=== PATIENT | male | born 1940 | race Caucasian/White ===

== ENCOUNTER 2020-06-29 15:31 | Inpatient (IN) ==
[2020-06-29] MEDS ORDERED: Ondansetron 4 MG/2 ML VIAL IVP PRN (19:36)
[2020-06-29] MEDS ORDERED: Acetaminophen 325 MG TABLET PO PRN (19:36)
[2020-06-29 20:18] LABS: Hematocrit 42.7 % (37.5-50.1); Hemoglobin 12.8 g/dL (12.9-16.9); Mean Corpuscular Hemoglobin 28.1 pg (28.0-33.3); Mean Corpuscular Volume 93.6 fL (83.0-100.0); Mean Platelet Volume 10.2 fL (9.4-12.4); Platelet Count 300 K/mcL (140-400); Red Blood Count 4.56 M/mcL (4.19-5.50); White Blood Count 7.9 K/mcL (4.3-11.1)
[2020-06-29] MEDS ORDERED: Furosemide 40 MG/4 ML VIAL IVP ONE (20:21)
[2020-06-29 20:38] LABS: Calcium 9.3 mg/dL (8.6-10.3); Potassium 5.4 mEq/L (3.5-5.1)
[2020-06-29 20:41] LABS: INR 5.3
[2020-06-30] MEDS ORDERED: Furosemide 40 MG/4 ML VIAL IVP SCH ×2 (08:00→13:30)
[2020-06-30 08:35] LABS: Albumin 3.1 g/dL (3.5-5.7); Albumin/Globulin Ratio 0.9 (1.1-2.2); Bilirubin,Direct 0.1 mg/dL (0.0-0.2); Bilirubin,Indirect 0.4 mg/dL (0.0-1.0); Bilirubin,Total 0.5 mg/dL (0.3-1.0); Globulin 3.3 g/dL (2.4-3.5); Magnesium 2.4 mg/dL (1.6-2.6); Phosphorous 4.5 mg/dL (2.7-4.5); Total Protein 6.4 g/dL (6.4-8.9)
[2020-06-30 08:38] LABS: Troponin I 0.04 ng/mL (< 0.04)
[2020-06-30 08:52] LABS: Hematocrit 43.3 % (37.5-50.1); Hemoglobin 12.9 g/dL (12.9-16.9); Mean Corpuscular HGB Conc 29.8 g/dL (31.6-35.5); Mean Corpuscular Hemoglobin 27.7 pg (28.0-33.3); Mean Corpuscular Volume 93.1 fL (83.0-100.0); Mean Platelet Volume 10.3 fL (9.4-12.4); Platelet Count 297 K/mcL (140-400); Red Blood Count 4.65 M/mcL (4.19-5.50); Red Cell Distribution Width 17.1 % (11.5-14.5); White Blood Count 9.6 K/mcL (4.3-11.1)
[2020-06-30 08:59] LABS: INR 4.8; Prothrombin Time 53.1 Seconds (9.4-12.1)
[2020-06-30 09:36] LABS: Calcium 9.4 mg/dL (8.6-10.3); Magnesium 2.3 mg/dL (1.6-2.6); Potassium 5.3 mEq/L (3.5-5.1); Troponin I 0.04 ng/mL (< 0.04)
[2020-06-30 13:48] LABS: ABG Base Excess -4 mEq/L (-2 to 3); ABG HCO3 24 mEq/L (21-27); ABG Oxygen Saturation 91 % (95-98); ABG PCO2 54 mmHg (35-45); ABG PH 7.26 pH Units (7.32-7.45); ABG PO2 70 mmHg (85-104); ABG TCO2 26 mEq/L (20-26)
[2020-06-30] MEDS ORDERED: Perflutren Lipid Microsphere 1.3 ML in 0.9 % Sodium Chloride 8.7 ML IVP PRN (15:29)
[2020-06-30] MEDS ORDERED: Dextrose Gel 15 GM/37.5 ML TUBE PO PRN ×2 (15:48)
[2020-06-30] MEDS ORDERED: D5% in Water 1,000 ML IVC PRN (15:48)
[2020-06-30] MEDS ORDERED: *HR* Dextrose 50 % in Water (Vial) 50 ML VIAL IVP PRN (15:48)
[2020-06-30] MEDS: Insulin LISPRO 300 UNITS/3 ML VIAL SQ SCH (16:21)
[2020-06-30] MEDS: Azithromycin 500 MG in D5% in Water 250 ML IVPB SCH (16:31)
[2020-06-30] MEDS: cefTRIAXone 1,000 MG in Water for inj. (sterile) 20 ML IVP SCH (16:32)
[2020-06-30 16:48] LABS: Estimated Average Glucose 134 mg/dl
[2020-06-30] MEDS ORDERED: Warfarin perPT PO PRN ×2 (18:00)
[2020-06-30] MEDS: Furosemide 40 MG/4 ML VIAL IVP SCH (20:19)
[2020-06-30 21:14] LABS: Bilirubin,Urine Negative (Negative); Blood,Urine Negative (Negative); Clarity,Urine Clear (Clear); Color,Urine Light-Yellow (Yellow); Glucose,Urine (UA) Normal (Normal); Ketones,Urine Negative (Negative); Leukocyte Esterase,Urine Negative (Negative); Nitrite,Urine Negative (Negative); Protein,Urine Negative (Neg-Trace); Specific Gravity,Urine 1.009 (1.010-1.025); Urobilinogen,Urine Normal (Normal)
[2020-07-01 06:20] LABS: Basophils % 0.3 %; Eosinophils # 0.1 K/mcL (0.0-0.6); Eosinophils % 1.1 %; Hematocrit 36.2 % (37.5-50.1); Hemoglobin 11.3 g/dL (12.9-16.9); Immature Granulocytes % 0.3 % (0-4); Lymphocytes # 0.6 K/mcL (0.6-4.6); Lymphocytes % 5.8 %; Mean Corpuscular HGB Conc 31.2 g/dL (31.6-35.5); Mean Corpuscular Hemoglobin 28.6 pg (28.0-33.3); Mean Corpuscular Volume 91.6 fL (83.0-100.0); Mean Platelet Volume 10.3 fL (9.4-12.4); Monocytes # 1.1 K/mcL (0.0-1.3); Monocytes % 10.6 %; Neutrophils # 8.1 K/mcL (1.6-8.9); Platelet Count 243 K/mcL (140-400); Red Blood Count 3.95 M/mcL (4.19-5.50); Red Cell Distribution Width 16.6 % (11.5-14.5); Segmented Neutrophils % 81.9 %; White Blood Count 9.9 K/mcL (4.3-11.1)
[2020-07-01 06:39] LABS: Magnesium 2.1 mg/dL (1.6-2.6); Phosphorous 4.6 mg/dL (2.7-4.5); Uric Acid 6.1 mg/dL (2.3-7.6)
[2020-07-01 06:40] LABS: INR 3.5; Prothrombin Time 38.8 Seconds (9.4-12.1)
[2020-07-01] MEDS: Furosemide 40 MG/4 ML VIAL IVP SCH ×2 (07:48→16:20)
[2020-07-01] MEDS: Insulin LISPRO 300 UNITS/3 ML VIAL SQ SCH ×3 (07:57→16:43)
[2020-07-01] MEDS ORDERED: Ipratropium/Albuterol Neb 3 ML IH PRN (15:50)
[2020-07-01] MEDS: cefTRIAXone 1,000 MG in Water for inj. (sterile) 20 ML IVP SCH (16:20)
[2020-07-01] MEDS: Azithromycin 500 MG in D5% in Water 250 ML IVPB SCH (16:21)
[2020-07-01] MEDS ORDERED: *HR* Warfarin 1 MG TABLET PO ONE (18:00)
[2020-07-02 07:29] LABS: Basophils % 0.1 %; Eosinophils # 0.1 K/mcL (0.0-0.6); Eosinophils % 1.1 %; Hematocrit 34.8 % (37.5-50.1); Hemoglobin 10.9 g/dL (12.9-16.9); Immature Granulocytes % 0.3 % (0-4); Lymphocytes # 0.5 K/mcL (0.6-4.6); Lymphocytes % 5.6 %; Mean Corpuscular HGB Conc 31.3 g/dL (31.6-35.5); Mean Corpuscular Volume 89.5 fL (83.0-100.0); Monocytes % 11.1 %; Neutrophils # 7.7 K/mcL (1.6-8.9); Platelet Count 213 K/mcL (140-400); Red Blood Count 3.89 M/mcL (4.19-5.50); Red Cell Distribution Width 16.6 % (11.5-14.5); Segmented Neutrophils % 81.8 %; White Blood Count 9.4 K/mcL (4.3-11.1)
[2020-07-02 07:39] LABS: INR 2.1
[2020-07-02 07:48] LABS: Calcium 9.1 mg/dL (8.6-10.3)
[2020-07-02] MEDS: Insulin LISPRO 300 UNITS/3 ML VIAL SQ SCH ×4 (08:05→21:11)
[2020-07-02] MEDS: Furosemide 40 MG/4 ML VIAL IVP SCH ×2 (08:57→16:48)
[2020-07-02] MEDS: Azithromycin 500 MG in D5% in Water 250 ML IVPB SCH (16:49)
[2020-07-02] MEDS: cefTRIAXone 1,000 MG in Water for inj. (sterile) 20 ML IVP SCH (16:53)
[2020-07-03 04:44] LABS: Basophils % 0.2 %; Eosinophils # 0.2 K/mcL (0.0-0.6); Eosinophils % 2.2 %; Hematocrit 33.5 % (37.5-50.1); Hemoglobin 10.5 g/dL (12.9-16.9); Immature Granulocytes % 0.5 % (0-4); Lymphocytes # 0.6 K/mcL (0.6-4.6); Lymphocytes % 7.3 %; Mean Corpuscular HGB Conc 31.3 g/dL (31.6-35.5); Mean Corpuscular Hemoglobin 28.2 pg (28.0-33.3); Mean Corpuscular Volume 90.1 fL (83.0-100.0); Mean Platelet Volume 10.7 fL (9.4-12.4); Monocytes # 1.1 K/mcL (0.0-1.3); Monocytes % 13.2 %; Neutrophils # 6.2 K/mcL (1.6-8.9); Platelet Count 191 K/mcL (140-400); Red Blood Count 3.72 M/mcL (4.19-5.50); Red Cell Distribution Width 16.5 % (11.5-14.5); Segmented Neutrophils % 76.6 %; White Blood Count 8.1 K/mcL (4.3-11.1)
[2020-07-03 04:46] LABS: INR 1.9; Prothrombin Time 21.8 Seconds (9.4-12.1)
[2020-07-03 05:01] LABS: Calcium 8.5 mg/dL (8.6-10.3); Potassium 3.7 mEq/L (3.5-5.1)
[2020-07-03] MEDS: Insulin LISPRO 300 UNITS/3 ML VIAL SQ SCH ×4 (08:39→21:11)
[2020-07-03] MEDS: Furosemide 40 MG/4 ML VIAL IVP SCH ×2 (08:39→16:09)
[2020-07-03 13:32] LABS: RBC,Pleural Fluid 41000 RBC/mcL
[2020-07-03 14:18] LABS: Glucose,Pleural Fluid 102 mg/dL (No Ref Range); LDH,Pleural Fluid 66 Units/L (No Ref Range); Total Protein,Pleural Fluid < 2.0 g/dL
[2020-07-03 15:00] LABS: Appearance of Pleural Fl Cloudy (Clear)
[2020-07-03] MEDS: cefTRIAXone 1,000 MG in Water for inj. (sterile) 20 ML IVP SCH (16:09)
[2020-07-03] MEDS: Azithromycin 500 MG in D5% in Water 250 ML IVPB SCH (16:10)
[2020-07-03] MEDS ORDERED: Warfarin perPT PO PRN (18:00)
[2020-07-03] MEDS ORDERED: *HR* Warfarin 3 MG TABLET PO ONE (18:00)
[2020-07-03 21:16] LABS: Albumin 2.9 g/dL (3.5-5.7); Albumin/Globulin Ratio 0.9 (1.1-2.2); Bilirubin,Direct 0.2 mg/dL (0.0-0.2); Bilirubin,Indirect 0.1 mg/dL (0.0-1.0); Bilirubin,Total 0.3 mg/dL (0.3-1.0); Globulin 3.1 g/dL (2.4-3.5)
[2020-07-04 06:16] LABS: Basophils % 0.2 %; Eosinophils # 0.2 K/mcL (0.0-0.6); Eosinophils % 1.7 %; Hematocrit 34.3 % (37.5-50.1); Hemoglobin 10.7 g/dL (12.9-16.9); Immature Granulocytes % 0.4 % (0-4); Lymphocytes # 0.6 K/mcL (0.6-4.6); Lymphocytes % 6.6 %; Mean Corpuscular HGB Conc 31.2 g/dL (31.6-35.5); Mean Corpuscular Hemoglobin 27.9 pg (28.0-33.3); Mean Corpuscular Volume 89.3 fL (83.0-100.0); Mean Platelet Volume 11.3 fL (9.4-12.4); Monocytes # 1.4 K/mcL (0.0-1.3); Monocytes % 14.7 %; Platelet Count 205 K/mcL (140-400); Red Blood Count 3.84 M/mcL (4.19-5.50); Red Cell Distribution Width 16.3 % (11.5-14.5); Segmented Neutrophils % 76.4 %; White Blood Count 9.2 K/mcL (4.3-11.1)
[2020-07-04 06:22] LABS: INR 1.6; Prothrombin Time 17.7 Seconds (9.4-12.1)
[2020-07-04 06:37] LABS: Calcium 8.8 mg/dL (8.6-10.3); Potassium 3.6 mEq/L (3.5-5.1)
[2020-07-04] MEDS: Insulin LISPRO 300 UNITS/3 ML VIAL SQ SCH ×2 (07:25→09:00)
[2020-07-04] MEDS: Furosemide 40 MG/4 ML VIAL IVP SCH (08:59)
[2020-07-04 11:26] VITALS: BP 116/67
[2020-07-04] MEDS ORDERED: *HR* Warfarin 1 MG TABLET PO ONE (18:00)
== END 2020-07-04 14:40 | disposition home or self-care (01) | DRG 280 ==
LOC: 3ANU → SUATTDRO 18:37 → 3BNU 23:21 → 3ANU 23:26 → 2NNU 06-30 17:45
PROVIDERS: ADMIT Internal Medicine; ATTEND General Practice

== ENCOUNTER 2020-07-22 11:59 | Inpatient (IN) ==
[2020-07-22] MEDS ORDERED: Furosemide 40 MG/4 ML VIAL IVP ONE (13:49)
[2020-07-22 14:00] LABS: Basophils % 0.4 %; Eosinophils # 0.1 K/mcL (0.0-0.6); Eosinophils % 1.4 %; Immature Granulocytes % 0.4 % (0-4); Lymphocytes # 0.6 K/mcL (0.6-4.6); Lymphocytes % 8.6 %; Mean Corpuscular HGB Conc 29.7 g/dL (31.6-35.5); Mean Corpuscular Hemoglobin 27.7 pg (28.0-33.3); Mean Corpuscular Volume 93.2 fL (83.0-100.0); Mean Platelet Volume 10.7 fL (9.4-12.4); Monocytes # 0.9 K/mcL (0.0-1.3); Neutrophils # 5.6 K/mcL (1.6-8.9); Platelet Count 252 K/mcL (140-400); Red Blood Count 3.97 M/mcL (4.19-5.50); Segmented Neutrophils % 77.2 %; White Blood Count 7.2 K/mcL (4.3-11.1)
[2020-07-22 14:09] LABS: INR 1.8; Prothrombin Time 20.4 Seconds (9.4-12.1)
[2020-07-22 14:12] LABS: Activated Partial Thrombo Time 38.3 Seconds (26.0-36.0)
[2020-07-22 14:33] LABS: Troponin I 0.04 ng/mL (< 0.04)
[2020-07-22 14:41] LABS: Alanine Aminotransferase 26 Units/L (7-52); Albumin 3.4 g/dL (3.5-5.7); Albumin/Globulin Ratio 0.9 (1.1-2.2); Alkaline Phosphatase 232 Units/L (34-104); Aspartate Amino Transferase 32 Units/L (13-39); BUN/Creatinine Ratio 36 (6-26); Bilirubin,Direct 0.3 mg/dL (0.0-0.2); Bilirubin,Indirect 0.3 mg/dL (0.0-1.0); Bilirubin,Total 0.6 mg/dL (0.3-1.0); Blood Urea Nitrogen 46 mg/dL (8-23); Calcium 9.4 mg/dL (8.6-10.3); Carbon Dioxide 36 mEq/L (23-29); Chloride 95 mEq/L (98-107); Globulin 3.6 g/dL (2.4-3.5); Glucose 106 mg/dL (70-105); Osmolality,Calculated 298 (280-300); Potassium 3.9 mEq/L (3.5-5.1); Sodium 138 mEq/L (136-145); eGFR For African Americans > 60 (> 60); eGFR For Non-African Americans 54 (> 60)
[2020-07-22] MEDS ORDERED: Ondansetron 4 MG/2 ML VIAL IVP PRN (15:37)
[2020-07-22] MEDS ORDERED: Naloxone 0.4 MG/ML INJ IVP PRN (15:37)
[2020-07-22] MEDS ORDERED: Acetaminophen 325 MG TABLET PO PRN (15:37)
[2020-07-22] MEDS ORDERED: *HR* HYDROcodone/Acet 5/325 mg TABLET PO PRN (15:37)
[2020-07-22 17:15] LABS: Chol/HDL Ratio 2.8 (0-4.9)
[2020-07-22 17:16] LABS: Troponin I 0.03 ng/mL (< 0.04)
[2020-07-22] MEDS ORDERED: *HR* Warfarin 3 MG TABLET PO ONE (19:30)
[2020-07-22 21:19] LABS: Adenovirus Not Detected (Not Detect); Bordetella Pertussis Not Detected (Not Detect); Chlamydophila pneumoniae Not Detected (Not Detect); Coronavirus 229E Not Detected (Not Detect); Coronavirus HKU1 Not Detected (Not Detect); Coronavirus NL63 Not Detected (Not Detect); Coronavirus OC43 Not Detected (Not Detect); Human Metapneumovirus Not Detected (Not Detect); Human Rhinovirus/Enterovirus Not Detected (Not Detect); Influenza A Subtype 2009 H1 Not Detected (Not Detect); Influenza B Not Detected (Not Detect); Mycoplasma pneumoniae Not Detected (Not Detect); Parainfluenza Virus 1 Not Detected (Not Detect); Parainfluenza Virus 2 Not Detected (Not Detect); Parainfluenza Virus 3 Not Detected (Not Detect); Parainfluenza Virus 4 Not Detected (Not Detect); Respiratory Syncytial Virus Not Detected (Not Detect)
[2020-07-22] MEDS: Furosemide 40 MG/4 ML VIAL IVP SCH (21:24)
[2020-07-22] MEDS: Budesonide/Formoterol 80/4.5 1 PUFF INH IH SCH (21:51)
[2020-07-22] MEDS: Ipratropium/Albuterol Neb 3 ML IH SCH (21:53)
[2020-07-23] MEDS ORDERED: Ipratropium/Albuterol Neb 3 ML IH PRN (00:24)
[2020-07-23 01:58] LABS: Hematocrit 35.6 % (37.5-50.1); Hemoglobin 10.7 g/dL (12.9-16.9); Immature Granulocytes % 0.3 % (0-4); Lymphocytes % 9.5 %; Mean Corpuscular HGB Conc 30.1 g/dL (31.6-35.5); Mean Corpuscular Volume 93.2 fL (83.0-100.0); Mean Platelet Volume 10.5 fL (9.4-12.4); Monocytes % 14.1 %; Platelet Count 244 K/mcL (140-400); Red Blood Count 3.82 M/mcL (4.19-5.50); Red Cell Distribution Width 15.9 % (11.5-14.5); Segmented Neutrophils % 72.5 %; White Blood Count 6.9 K/mcL (4.3-11.1)
[2020-07-23 01:59] LABS: Basophils % 0.4 %; Eosinophils # 0.2 K/mcL (0.0-0.6); Eosinophils % 3.2 %; Lymphocytes # 0.7 K/mcL (0.6-4.6)
[2020-07-23 02:02] LABS: INR 1.9; Prothrombin Time 21.5 Seconds (9.4-12.1)
[2020-07-23 02:12] LABS: BUN/Creatinine Ratio 35 (6-26); Blood Urea Nitrogen 48 mg/dL (8-23); Calcium 9.1 mg/dL (8.6-10.3); Carbon Dioxide 37 mEq/L (23-29); Chloride 95 mEq/L (98-107); Glucose 90 mg/dL (70-105); Magnesium 1.9 mg/dL (1.6-2.6); Osmolality,Calculated 296 (280-300); Phosphorous 4.2 mg/dL (2.7-4.5); Potassium 3.9 mEq/L (3.5-5.1); Sodium 137 mEq/L (136-145); eGFR For African Americans > 60 (> 60); eGFR For Non-African Americans 50 (> 60)
[2020-07-23 02:21] LABS: % Iron Saturation 9 % (20-55); Iron 25 mcg/dL (65-175); Transferrin 194 mg/dL (203-362)
[2020-07-23 02:33] LABS: Ferritin 220 ng/mL (20-250)
[2020-07-23 02:49] LABS: Folate 19.2 ng/mL (3.0-16.0)
[2020-07-23] MEDS: Ipratropium/Albuterol Neb 3 ML IH SCH ×4 (04:06→22:16)
[2020-07-23 04:17] LABS: ABG Base Excess 10 mEq/L (-2 to 3); ABG HCO3 37 mEq/L (21-27); ABG Oxygen Saturation 98 % (95-98); ABG PCO2 61 mmHg (35-45); ABG PH 7.39 pH Units (7.32-7.45); ABG PO2 105 mmHg (85-104); ABG TCO2 39 mEq/L (20-26)
[2020-07-23] MEDS ORDERED: Iron Sucrose Complex 400 MG in 0.9 % Sodium Chloride 250 ML IVPB ONE (07:46)
[2020-07-23 07:48] LABS: Estimated Average Glucose 137 mg/dl; Hemoglobin A1C 6.4 %
[2020-07-23] MEDS: Budesonide/Formoterol 80/4.5 1 PUFF INH IH SCH ×2 (09:26→22:16)
[2020-07-23] MEDS: predniSONE 20 MG TABLET PO SCH (09:52)
[2020-07-23] MEDS: Ascorbic Acid 500 MG TABLET PO SCH (09:53)
[2020-07-23] MEDS: allopurinoL 300 MG TABLET PO SCH (09:53)
[2020-07-23] MEDS: Furosemide 40 MG/4 ML VIAL IVP SCH ×2 (09:54→19:36)
[2020-07-23] MEDS ORDERED: *HR* Warfarin 3 MG TABLET PO ONE (18:00)
[2020-07-23] MEDS ORDERED: Warfarin perPT PO PRN (18:00)
[2020-07-24] MEDS: Ipratropium/Albuterol Neb 3 ML IH SCH ×4 (03:34→21:20)
[2020-07-24 07:15] LABS: Basophils % 0.1 %; Hematocrit 34.4 % (37.5-50.1); Hemoglobin 10.6 g/dL (12.9-16.9); Immature Granulocytes % 0.4 % (0-4); Lymphocytes # 0.6 K/mcL (0.6-4.6); Lymphocytes % 8.5 %; Mean Corpuscular HGB Conc 30.8 g/dL (31.6-35.5); Mean Corpuscular Hemoglobin 27.7 pg (28.0-33.3); Mean Corpuscular Volume 89.8 fL (83.0-100.0); Mean Platelet Volume 10.9 fL (9.4-12.4); Monocytes # 0.7 K/mcL (0.0-1.3); Monocytes % 9.9 %; Platelet Count 262 K/mcL (140-400); Red Blood Count 3.83 M/mcL (4.19-5.50); Segmented Neutrophils % 81.1 %; White Blood Count 7.5 K/mcL (4.3-11.1)
[2020-07-24 07:19] LABS: INR 2.3; Prothrombin Time 25.6 Seconds (9.4-12.1)
[2020-07-24 07:29] LABS: BUN/Creatinine Ratio 35 (6-26); Blood Urea Nitrogen 47 mg/dL (8-23); Calcium 9.7 mg/dL (8.6-10.3); Carbon Dioxide 35 mEq/L (23-29); Chloride 95 mEq/L (98-107); Glucose 120 mg/dL (70-105); Osmolality,Calculated 297 (280-300); Potassium 4.2 mEq/L (3.5-5.1); Sodium 137 mEq/L (136-145); eGFR For African Americans > 60 (> 60); eGFR For Non-African Americans 51 (> 60)
[2020-07-24 07:41] LABS: Triiodothyronine (T3) Free 2.02 pg/mL (2.50-3.90)
[2020-07-24] MEDS: Ascorbic Acid 500 MG TABLET PO SCH (08:28)
[2020-07-24] MEDS: predniSONE 20 MG TABLET PO SCH (08:28)
[2020-07-24] MEDS: allopurinoL 300 MG TABLET PO SCH (08:28)
[2020-07-24] MEDS: Furosemide 40 MG/4 ML VIAL IVP SCH (08:29)
[2020-07-24] MEDS: Aspirin 81 MG TAB.CHEW PO SCH (09:38)
[2020-07-24] MEDS ORDERED: Perflutren Lipid Microsphere 1.3 ML in 0.9 % Sodium Chloride 8.7 ML IVP PRN (10:11)
[2020-07-24] MEDS: Budesonide/Formoterol 80/4.5 1 PUFF INH IH SCH ×2 (10:55→21:20)
[2020-07-24 11:44] LABS: Magnesium 1.9 mg/dL (1.6-2.6); Phosphorous 3.7 mg/dL (2.7-4.5)
[2020-07-24] MEDS ORDERED: *HR* Warfarin 3 MG TABLET PO ONE (18:00)
[2020-07-25] MEDS: Ipratropium/Albuterol Neb 3 ML IH SCH ×4 (03:30→22:00)
[2020-07-25 09:28] LABS: Basophils % 0.2 %; Eosinophils % 0.4 %; Hematocrit 37.1 % (37.5-50.1); Hemoglobin 11.1 g/dL (12.9-16.9); Immature Granulocytes % 0.5 % (0-4); Lymphocytes # 0.8 K/mcL (0.6-4.6); Lymphocytes % 8.1 %; Mean Corpuscular HGB Conc 29.9 g/dL (31.6-35.5); Mean Corpuscular Hemoglobin 27.2 pg (28.0-33.3); Mean Corpuscular Volume 90.9 fL (83.0-100.0); Monocytes # 1.2 K/mcL (0.0-1.3); Monocytes % 12.4 %; Neutrophils # 7.7 K/mcL (1.6-8.9); Platelet Count 267 K/mcL (140-400); Red Blood Count 4.08 M/mcL (4.19-5.50); Red Cell Distribution Width 16.4 % (11.5-14.5); Segmented Neutrophils % 78.4 %; White Blood Count 9.9 K/mcL (4.3-11.1)
[2020-07-25 09:35] LABS: INR 2.3; Prothrombin Time 25.8 Seconds (9.4-12.1)
[2020-07-25] MEDS: Budesonide/Formoterol 80/4.5 1 PUFF INH IH SCH ×2 (09:47→22:00)
[2020-07-25 09:48] LABS: Calcium 9.7 mg/dL (8.6-10.3); Phosphorous 2.8 mg/dL (2.7-4.5); Potassium 3.7 mEq/L (3.5-5.1)
[2020-07-25] MEDS: predniSONE 20 MG TABLET PO SCH (09:53)
[2020-07-25] MEDS: Aspirin 81 MG TAB.CHEW PO SCH (09:53)
[2020-07-25] MEDS: allopurinoL 300 MG TABLET PO SCH (09:53)
[2020-07-25] MEDS: Furosemide 40 MG/4 ML VIAL IVP SCH (09:53)
[2020-07-25] MEDS: Multivit/Ca/Min/Fe/FA 1 TAB TABLET PO SCH (09:53)
[2020-07-25] MEDS: Ascorbic Acid 500 MG TABLET PO SCH (09:53)
[2020-07-25] MEDS ORDERED: *HR* Warfarin 0.5 MG TABLET PO ONE (18:00)
[2020-07-26] MEDS: Ipratropium/Albuterol Neb 3 ML IH SCH ×4 (03:38→21:54)
[2020-07-26 04:24] LABS: Hematocrit 33.1 % (37.5-50.1); Hemoglobin 10.2 g/dL (12.9-16.9); Mean Corpuscular HGB Conc 30.8 g/dL (31.6-35.5); Mean Corpuscular Hemoglobin 27.8 pg (28.0-33.3); Mean Corpuscular Volume 90.2 fL (83.0-100.0); Mean Platelet Volume 11.1 fL (9.4-12.4); Platelet Count 244 K/mcL (140-400); Red Blood Count 3.67 M/mcL (4.19-5.50); Red Cell Distribution Width 16.1 % (11.5-14.5); White Blood Count 7.5 K/mcL (4.3-11.1)
[2020-07-26 04:28] LABS: INR 2.2; Prothrombin Time 24.7 Seconds (9.4-12.1)
[2020-07-26 04:42] LABS: Phosphorous 3.1 mg/dL (2.7-4.5); Potassium 4.3 mEq/L (3.5-5.1)
[2020-07-26] MEDS: predniSONE 20 MG TABLET PO SCH (08:18)
[2020-07-26] MEDS: Ascorbic Acid 500 MG TABLET PO SCH (08:24)
[2020-07-26] MEDS: Aspirin 81 MG TAB.CHEW PO SCH (08:24)
[2020-07-26] MEDS: allopurinoL 300 MG TABLET PO SCH (08:24)
[2020-07-26] MEDS: Multivit/Ca/Min/Fe/FA 1 TAB TABLET PO SCH (08:24)
[2020-07-26] MEDS: Furosemide 40 MG TABLET PO SCH (08:24)
[2020-07-26] MEDS: Budesonide/Formoterol 80/4.5 1 PUFF INH IH SCH ×2 (09:57→21:54)
[2020-07-27 02:34] LABS: INR 1.7; Prothrombin Time 19.3 Seconds (9.4-12.1)
[2020-07-27 02:39] LABS: Hematocrit 34.7 % (37.5-50.1); Hemoglobin 10.5 g/dL (12.9-16.9); Mean Corpuscular HGB Conc 30.3 g/dL (31.6-35.5); Mean Corpuscular Hemoglobin 27.9 pg (28.0-33.3); Platelet Count 231 K/mcL (140-400); Red Blood Count 3.77 M/mcL (4.19-5.50); Red Cell Distribution Width 16.2 % (11.5-14.5)
[2020-07-27 02:59] LABS: Magnesium 2.1 mg/dL (1.6-2.6); Phosphorous 2.7 mg/dL (2.7-4.5); Potassium 4.2 mEq/L (3.5-5.1)
[2020-07-27] MEDS: Ipratropium/Albuterol Neb 3 ML IH SCH ×4 (03:30→21:45)
[2020-07-27] MEDS: Aspirin 81 MG TAB.CHEW PO SCH (09:24)
[2020-07-27] MEDS: predniSONE 20 MG TABLET PO SCH (09:25)
[2020-07-27] MEDS: Ascorbic Acid 500 MG TABLET PO SCH (09:25)
[2020-07-27] MEDS: Multivit/Ca/Min/Fe/FA 1 TAB TABLET PO SCH (09:25)
[2020-07-27] MEDS: allopurinoL 300 MG TABLET PO SCH (09:26)
[2020-07-27] MEDS: Furosemide 40 MG TABLET PO SCH (09:26)
[2020-07-27] MEDS ORDERED: Nitroglycerin 1,000 MCG/10 ML VIAL IV ONE (10:39)
[2020-07-27] MEDS ORDERED: 0.9 % Sodium Chloride 2,000 ML ONE (10:39)
[2020-07-27] MEDS ORDERED: *HR* Heparin 10,000 UNIT/10 ML VIAL ONE (10:39)
[2020-07-27] MEDS ORDERED: Heparin 1,000 UNITS/500 mL 500 ML ONE (10:39)
[2020-07-27] MEDS ORDERED: ISOVUE-370 200 ML INFUS..BTL ONE (10:39)
[2020-07-27] MEDS: Budesonide/Formoterol 80/4.5 1 PUFF INH IH SCH ×2 (11:10→21:49)
[2020-07-27] MEDS ORDERED: 0.9 % Sodium Chloride 1,000 ML ONE (12:45)
[2020-07-27] MEDS ORDERED: *HR* FentaNYL (PF) 100 MCG/2 ML VIAL ONE (12:45)
[2020-07-27] MEDS ORDERED: *HR* Midazolam HCl 2 MG/2 ML VIAL ONE (12:45)
[2020-07-27] MEDS ORDERED: *HR* Warfarin 3 MG TABLET PO ONE (18:00)
[2020-07-27] MEDS ORDERED: Warfarin 0.5 MG, Warfarin 1 MG PO ONE (18:00)
[2020-07-27] MEDS ORDERED: *HR* Warfarin 1 MG TABLET PO ONE (18:00)
[2020-07-27 19:57] LABS: Bacteria,Urine Few per hpf (None-Few); Bilirubin,Urine Negative (Negative); Blood,Urine Moderate (Negative); Clarity,Urine Clear (Clear); Color,Urine Light-Yellow (Yellow); Glucose,Urine (UA) Normal (Normal); Hyaline Casts,Urine Few per lpf (None Seen); Ketones,Urine Negative (Negative); Leukocyte Esterase,Urine Trace (Negative); Nitrite,Urine Negative (Negative); PH,Urine 5.5 pH Units (5.0-8.0); Protein,Urine Negative (Neg-Trace); RBC,Urine 50-100 per hpf (0-3); Squamous Epithelial Cell,Urine Few per hpf (None-Few); Urobilinogen,Urine Normal (Normal)
[2020-07-28] MEDS: Ipratropium/Albuterol Neb 3 ML IH SCH ×2 (03:44→10:45)
[2020-07-28 05:59] LABS: Hematocrit 35.7 % (37.5-50.1); Hemoglobin 10.5 g/dL (12.9-16.9); Mean Corpuscular HGB Conc 29.4 g/dL (31.6-35.5); Mean Corpuscular Hemoglobin 27.3 pg (28.0-33.3); Mean Platelet Volume 10.8 fL (9.4-12.4); Platelet Count 232 K/mcL (140-400); Red Blood Count 3.84 M/mcL (4.19-5.50); Red Cell Distribution Width 16.4 % (11.5-14.5); White Blood Count 8.4 K/mcL (4.3-11.1)
[2020-07-28 06:05] LABS: INR 1.5; Prothrombin Time 16.8 Seconds (9.4-12.1)
[2020-07-28 08:14] LABS: Calcium 9.3 mg/dL (8.6-10.3); Magnesium 2.1 mg/dL (1.6-2.6); Phosphorous 3.1 mg/dL (2.7-4.5); Potassium 4.6 mEq/L (3.5-5.1)
[2020-07-28] MEDS: Ascorbic Acid 500 MG TABLET PO SCH (08:41)
[2020-07-28] MEDS: Aspirin 81 MG TAB.CHEW PO SCH (08:41)
[2020-07-28] MEDS: allopurinoL 300 MG TABLET PO SCH (08:42)
[2020-07-28] MEDS: predniSONE 20 MG TABLET PO SCH (08:43)
[2020-07-28] MEDS: Multivit/Ca/Min/Fe/FA 1 TAB TABLET PO SCH (08:43)
[2020-07-28] MEDS: Budesonide/Formoterol 80/4.5 1 PUFF INH IH SCH (10:45)
[2020-07-28 11:01] VITALS: BP 132/68
[2020-07-28] MEDS ORDERED: *HR* Warfarin 3 MG TABLET PO ONE (18:00)
== END 2020-07-28 13:14 | disposition home or self-care (01) | DRG 280 ==
LOC: EMEROOARM 11:59 → 2ANU 11:59 → SUATTDRO 15:43 → 2ANU 16:14
PROVIDERS: ADMIT Internal Medicine; ATTEND Internal Medicine